=== PATIENT | female | born 1940 | race Caucasian/White ===

== ENCOUNTER 2021-07-12 20:08 | Emergency (ER) | payer OTHER ==
[2021-07-12 20:53] VITALS: BP 131/55; PULSE 85; TEMP 97.9; BMI 29.9
[2021-07-12 20:54] LABS: ALBUMIN 3.9 g/dl (3.4-5.0); BILIRUBIN,TOTAL 0.3 mg/dl (0.2-1); CALCIUM 9.3 mg/dl (8.5-10); TOT PROT 6.8 g/dl (6.4-8.2)
[2021-07-12 23:11] LABS: BASO % 0.7 % (0-2.0); EOS % 3.1 % (0-4.5); HEMATOCRIT 41.1 % (32.4-45.2); HEMOGLOBIN 13.7 GM/dL (10.7-15.3); LYMPH % 32.5 % (8-40); MCH 29.3 pg (25.7-33.7); MCHC 33.3 g/dl (32.0-36.0); MEAN PLT VOLUME 7.8 fl (7.5-11.1); NEUT % 56.7 % (42.8-82.8); PLATELET COUNT 246 10^3/uL (134-434); RBC 4.67 M/mm3 (3.60-5.2); RDW 14.8 % (11.6-15.6); WHITE BLOOD COUNT 4.6 K/mm3 (4.0-10.0)
== END 2021-07-12 23:26 | disposition home or self-care (01) ==
LOC: FER 20:08
DX: R07.9 Chest pain, unspecified (principal)
CPT/HCPCS: 36415; 80053; 84484; 85025; 93005; 99284-25

== ENCOUNTER 2024-10-26 12:39 | Emergency (ER) | payer OTHER ==
[2024-10-26 13:03] VITALS: BP 151/83; PULSE 94; RESP 17; TEMP 97.9; BMI 27.1
[2024-10-26] MEDS ORDERED: ACETAMINOPHEN 325 MG TABLET (FP) ONE (13:37)
[2024-10-26] MEDS: ACETAMINOPHEN 325 MG TABLET (FP) PO ONE (13:41)
== END 2024-10-26 17:10 | disposition home or self-care (01) ==
LOC: JER 12:39
DX: R51.9 Headache, unspecified (principal); J34.89 Other specified disorders of nose and nasal sinuses; M25.561 Pain in right knee; M25.562 Pain in left knee; W01.190A Fall on same level from slipping, tripping and stumbling with subsequent striking against furniture, initial encounter; Y92.000 Kitchen of unspecified non-institutional (private) residence as the place of occurrence of the external cause
CPT/HCPCS: 70450-TC; 70486-TC; 72125-TC; 73562-TC-LT-FY; 73562-TC-RT-FY; 99284-25